=== PATIENT | female | born 1995 | race African-American/Black ===

== ENCOUNTER 2016-11-04 14:44 | Outpatient (CLI) | payer OTHER | END 2016-11-04 14:45 | disposition home or self-care (01) | LOC: MADLABBHPM 14:44 | PROVIDERS: ATTEND Family Medicine | DX: Z34.83 Encounter for supervision of other normal pregnancy, third trimester (principal) | CPT/HCPCS: 36415; 87086 ==

== ENCOUNTER 2016-11-15 | Emergency (ER) | payer OTHER | END 2016-11-15 00:23 | disposition home or self-care (01) | LOC: MADERS | DX: O99.63 Diseases of the digestive system complicating the puerperium (principal); K59.00 Constipation, unspecified | CPT/HCPCS: 99283 ==

== ENCOUNTER 2017-12-13 14:25 | Emergency (ER) | payer OTHER, SELFPAY | END 2017-12-13 15:07 | disposition home or self-care (01) | LOC: MADERS 14:25 | DX: J06.9 Acute upper respiratory infection, unspecified (principal) | CPT/HCPCS: 99283 ==

== ENCOUNTER 2017-12-26 10:22 | Emergency (ER) | payer SELFPAY ==
[2017-12-26] MEDS ORDERED: Ketorolac Tromethamine 30 MG/ML VIAL ONE (11:35)
[2017-12-26] MEDS ORDERED: Metoclopramide HCl 10 MG/2 ML VIAL ONE (11:35)
[2017-12-26] MEDS ORDERED: Acetaminophen 500 MG TAB ONE (11:55)
[2017-12-26 11:57] LABS: #Basophils 0.1 thou/uL (0.0-0.2); #Lymphocytes 0.9 thou/uL (1.20-3.40); #Monocytes 0.8 thou/uL (0.11-0.59); #Neutrophils 9.3 thou/uL (1.40-6.50); %Basophils 1.1 % (0.0-1.0); %Eosinophils 0.1 % (0.0-10.0); %Lymphocytes 8.4 % (21.0-51.0); %Monocytes 6.7 % (0.0-10.0); %Neutrophils 83.8 % (42.0-75.0); Hemoglobin 12.2 g/dL (12.0-16.0); Mean Corpuscular HGB CONC 34.5 g/dL (32.0-36.0); Mean Corpuscular Hemoglobin 31.6 pg (27.0-31.0); Mean Corpuscular Volume 91.5 fL (78.0-98.0); Mean Platelet Volume 5.4 fL (7.4-10.4); Platelet Count 330 thou/uL (130-400); RBC Distribution Width 11.4 % (11.5-14.5); Red Blood Cell (RBC) Count 3.86 mill/uL (4.20-5.40); White Blood Cell (WBC) Count 11.1 thou/uL (4.8-10.8)
[2017-12-26 12:02] LABS: Bilirubin Negative (Negative); Blood, Urine Negative (Negative); Clarity Clear (Clear); Glucose, Urine (Dipstick) Negative (Negative); Leukocyte Moderate (Negative); Nitrite Negative (Negative); Protein, Urine (Dipstick) Negative (Neg-Trace); pH, Urine 7.5 (5.0-9.0)
[2017-12-26 12:03] LABS: Pregnancy Test - Urine (BHCG) Negative (Negative); Pregu Control Bar Appear? YES (CONTROL BAR)
[2017-12-26 12:04] LABS: Pregu Control Background? CLEAR/WHITE (CLR/WHITE)
[2017-12-26 12:07] LABS: RBC/HPF 0-3 HPF (0-3)
[2017-12-26 12:08] LABS: ALT (SGPT) 17 U/L (8-55); AST (SGOT) 16 U/L (5-34); Albumin 4.4 g/dL (3.5-5.0); Alkaline Phosphatase 71 U/L (40-150); Anion Gap 13 mmol/L (10-20); BUN (Urea Nitrogen) 8 mg/dL (7.0-18.7); Bilirubin, Total 0.9 mg/dL (0.2-1.2); Calc. Creatinine Clearance 0 mL/min (70-130); Calcium 9.7 mg/dL (7.8-10.44); Carbon Dioxide 25 mmol/L (22-29); Chloride 102 mmol/L (98-107); Estimated GFR-MDRD Greater than 90; Globulin 3.3 g/dL (2.4-3.5); Glucose 101 mg/dL (70-105); Lipase 8 U/L (8-78); Potassium 3.6 mmol/L (3.5-5.1); Protein, Total 7.7 g/dL (6.0-8.3); Sodium 136 mmol/L (136-145)
[2017-12-26 12:08] LABS: Bacteria/HPF Rare-Few HPF (None Seen)
--- NOTE | 2017-12-26 12:29 | RAD ---
PORTABLE CHEST: Date: 12/26/17 HISTORY: Cough. FINDINGS: Heart size and mediastinum are within normal limits. The lungs are clear of any focal infiltrates. No significant bony findings. IMPRESSION: No active intrathoracic disease. POS: [facility]
[2017-12-26] MEDS ORDERED: Cephalexin 500 MG CAP ONE (12:40)
[2017-12-26] MEDS ORDERED: Sodium Chloride 0.9% 1,000 ML BAG ONE (14:14)
== END 2017-12-26 12:50 | disposition home or self-care (01) ==
LOC: MADERS 10:22
DX: B34.9 Viral infection, unspecified (principal); N39.0 Urinary tract infection, site not specified; R07.89 Other chest pain; F17.210 Nicotine dependence, cigarettes, uncomplicated
CPT/HCPCS: 71045; 80053; 81003; 81015; 81025; 83690; 85025; 87804; 93005; 96361; 96374; 96375; J1885; J2765; J7050

== ENCOUNTER 2018-06-24 01:17 | Emergency (ER) | payer SELFPAY ==
[2018-06-24] MEDS ORDERED: Ibuprofen 800 MG TAB ONE (02:02)
--- NOTE | 2018-06-24 09:11 | RAD ---
RIGHT FOREARM 2 VIEWS: Date: 06/24/18 HISTORY: Injury. FINDINS/IMPRESSION: No fracture, dislocation, or other significant acute osseous abnormality. POS: [facility]
--- NOTE | 2018-06-24 09:12 | RAD ---
RIGHT HAND 3 VIEWS: Date: 06/24/18 HISTORY: Injury. FINDINS/IMPRESSION: No fracture, dislocation, or other significant acute osseous abnormality. POS: [facility]
== END 2018-06-24 02:07 | disposition home or self-care (01) ==
LOC: MADERS 01:17
DX: S50.11XA Contusion of right forearm, initial encounter (principal); S60.222A Contusion of left hand, initial encounter; F17.210 Nicotine dependence, cigarettes, uncomplicated; W22.8XXA Striking against or struck by other objects, initial encounter

== ENCOUNTER 2019-01-24 19:17 | Emergency (ER) | payer OTHER ==
[2019-01-24 21:37] LABS: Pregnancy Test - Urine (BHCG) Negative (Negative)
[2019-01-24 21:38] LABS: Pregu Control Background? CLEAR/WHITE (CLR/WHITE); Pregu Control Bar Appear? YES (CONTROL BAR); Specific Gravity 1.022 (1.002-1.036)
[2019-01-24] MEDS ORDERED: Dexamethasone 4 MG TAB ONE (21:42)
[2019-01-24] MEDS ORDERED: Benzonatate 100 MG CAP ONE (21:42)
[2019-01-24] MEDS ORDERED: Azithromycin 250 MG TAB ONE (21:42)
== END 2019-01-24 21:50 | disposition home or self-care (01) ==
LOC: MADERS 19:17
DX: J18.9 Pneumonia, unspecified organism (principal); F17.210 Nicotine dependence, cigarettes, uncomplicated
CPT/HCPCS: 81025; 87804; J7620; J8540

== ENCOUNTER 2019-02-26 21:19 | Emergency (ER) | payer OTHER ==
[2019-02-26 22:24] LABS: Bilirubin Negative (Negative); Blood, Urine Negative (Negative); Clarity Slightly Cloudy (Clear); Glucose, Urine (Dipstick) Negative (Negative); Leukocyte Trace (Negative); Nitrite Negative (Negative); Pregnancy Test - Urine (BHCG) Negative (Negative); Pregu Control Background? CLEAR/WHITE (CLR/WHITE); Pregu Control Bar Appear? YES (CONTROL BAR); Protein, Urine (Dipstick) Negative (Neg-Trace)
[2019-02-26 22:32] LABS: Bacteria/HPF 1+ HPF (None Seen); RBC/HPF None Seen HPF (0-3); Squamous Epithelial 21-50 HPF (0-3)
== END 2019-02-26 23:20 | disposition home or self-care (01) ==
LOC: MADERS 21:19 → EEVIPCON 21:19 → MADERS 23:20
DX: M54.5 Low back pain (principal); F17.210 Nicotine dependence, cigarettes, uncomplicated
CPT/HCPCS: 81003; 81015; 81025; 87077; 87086; 87186

== ENCOUNTER 2019-07-04 21:03 | Emergency (ER) | payer OTHER ==
[2019-07-04] MEDS ORDERED: Sodium Chloride 0.9% 1,000 ML ONE (21:56)
[2019-07-04 22:27] LABS: #Basophils 0.1 thou/uL (0.0-0.2); #Eosinphils 0.1 thou/uL (0.0-0.7); #Lymphocytes 2.4 thou/uL (1.20-3.40); #Monocytes 0.6 thou/uL (0.11-0.59); #Neutrophils 2.3 thou/uL (1.40-6.50); %Basophils 1.1 % (0.0-1.0); %Eosinophils 1.2 % (0.0-10.0); %Lymphocytes 44.3 % (21.0-51.0); %Monocytes 10.7 % (0.0-10.0); %Neutrophils 42.7 % (42.0-75.0); Hemoglobin 11.8 g/dL (12.0-16.0); Mean Corpuscular HGB CONC 31.6 g/dL (32.0-36.0); Mean Corpuscular Hemoglobin 29.3 pg (27.0-31.0); Mean Corpuscular Volume 92.8 fL (78.0-98.0); Platelet Count 309 thou/uL (130-400); RBC Distribution Width 11.5 % (11.5-14.5); Red Blood Cell (RBC) Count 4.03 mill/uL (4.20-5.40); White Blood Cell (WBC) Count 5.4 thou/uL (4.8-10.8)
[2019-07-04 22:33] LABS: BHCG - Serum Negative (NEGATIVE); Pregs Control Background? CLEAR/WHITE (CLR/WHITE); Pregs Control Bar Appear? YES (CONTROL BAR)
[2019-07-04 23:07] LABS: ALT (SGPT) 17 U/L (8-55); AST (SGOT) 17 U/L (5-34); Albumin 4.2 g/dL (3.5-5.0); Alkaline Phosphatase 63 U/L (40-110); Anion Gap 16 mmol/L (10-20); BUN (Urea Nitrogen) 11 mg/dL (7.0-18.7); Bilirubin, Total 0.4 mg/dL (0.2-1.2); CK (CPK) 195 U/L (29-168); Calc. Creatinine Clearance 0 mL/min (70-130); Calcium 9.1 mg/dL (7.8-10.44); Carbon Dioxide 23 mmol/L (22-29); Chloride 103 mmol/L (98-107); Estimated GFR-MDRD Greater than 90; Globulin 3.1 g/dL (2.4-3.5); Glucose 89 mg/dL (70-105); Potassium 3.7 mmol/L (3.5-5.1); Protein, Total 7.3 g/dL (6.0-8.3); Sodium 138 mmol/L (136-145)
[2019-07-04] MEDS ORDERED: Ondansetron ODT 4 MG TAB ONE ×2 (23:32→23:34)
== END 2019-07-04 23:41 | disposition home or self-care (01) ==
LOC: MADERS 21:03
DX: E86.0 Dehydration (principal); R25.2 Cramp and spasm
CPT/HCPCS: 36415; 80053; 82550; 83605; 84703; 85025; 96360; J7050; Q0162

== ENCOUNTER 2019-07-25 15:43 | Emergency (ER) | payer OTHER ==
[2019-07-25] MEDS ORDERED: Loperamide HCl 2 MG CAP ONE (16:16)
== END 2019-07-25 16:25 | disposition home or self-care (01) ==
LOC: MADERS 15:43
DX: A08.4 Viral intestinal infection, unspecified (principal)
CPT/HCPCS: 99283

== ENCOUNTER 2019-12-10 15:27 | Emergency (ER) | payer OTHER ==
[2019-12-10] MEDS ORDERED: Acetaminophen 500 MG TAB ONE (16:04)
[2019-12-10] MEDS ORDERED: Ibuprofen 800 MG TAB ONE (16:04)
== END 2019-12-10 16:12 | disposition home or self-care (01) ==
LOC: MADERS 15:27
DX: G44.209 Tension-type headache, unspecified, not intractable (principal)
CPT/HCPCS: 99283

== ENCOUNTER 2020-01-06 19:01 | Emergency (ER) | payer OTHER ==
[2020-01-06] MEDS ORDERED: Lidocaine 1% w/Epinephrine 1:100K 20 ML VIAL ONE (19:16)
== END 2020-01-06 19:46 | disposition home or self-care (01) ==
LOC: MADERS 19:01
DX: S01.01XA Laceration without foreign body of scalp, initial encounter (principal); W03.XXXA Other fall on same level due to collision with another person, initial encounter
CPT/HCPCS: 12002

== ENCOUNTER 2020-10-26 06:35 | Emergency (ER) | payer OTHER ==
[2020-10-26 07:18] LABS: #Eosinphils 0.1 thou/uL (0.0-0.7); #Lymphocytes 1.3 thou/uL (1.20-3.40); #Monocytes 0.5 thou/uL (0.11-0.59); #Neutrophils 2.5 thou/uL (1.40-6.50); %Eosinophils 2.8 % (0.0-10.0); %Lymphocytes 29.5 % (21.0-51.0); %Monocytes 11.2 % (0.0-10.0); %Neutrophils 55.5 % (42.0-75.0); Hemoglobin 12.7 g/dL (12.0-16.0); Mean Corpuscular HGB CONC 32.3 g/dL (32.0-36.0); Mean Corpuscular Hemoglobin 29.7 pg (27.0-31.0); Mean Corpuscular Volume 91.9 fL (78.0-98.0); Mean Platelet Volume 6.1 fL (7.4-10.4); Platelet Count 374 thou/uL (130-400); RBC Distribution Width 11.8 % (11.5-14.5); Red Blood Cell (RBC) Count 4.27 mill/uL (4.20-5.40); White Blood Cell (WBC) Count 4.4 thou/uL (4.8-10.8)
[2020-10-26] MEDS ORDERED: Fentanyl 100 MCG/2 ML VIAL ONE (07:18)
[2020-10-26] MEDS ORDERED: Sodium Chloride 0.9% 1,000 ML ONE (07:18)
[2020-10-26 07:21] LABS: Bilirubin Negative (Negative); Blood, Urine Negative (Negative); Clarity Clear (Clear); Glucose, Urine (Dipstick) Negative (Negative); Ketone, Urine Negative (Negative); Leukocyte Negative (Negative); Nitrite Negative (Negative); Protein, Urine (Dipstick) Negative (Neg-Trace)
[2020-10-26 07:23] LABS: Specific Gravity, Urine 1.028 (1.002-1.036)
[2020-10-26 07:25] LABS: Pregnancy Test - Urine (BHCG) Negative (Negative); Pregu Control Background? CLEAR/WHITE (CLR/WHITE); Pregu Control Bar Appear? YES (CONTROL BAR); Specific Gravity 1.028 (1.002-1.036)
[2020-10-26 07:34] LABS: ALT (SGPT) 28 U/L (8-55); AST (SGOT) 21 U/L (5-34); Albumin 4.3 g/dL (3.5-5.0); Alkaline Phosphatase 77 U/L (40-110); Anion Gap 13 mmol/L (10-20); BUN (Urea Nitrogen) 11 mg/dL (7.0-18.7); Bilirubin, Total 0.4 mg/dL (0.2-1.2); Calc. Creatinine Clearance 0 mL/min (70-130); Calcium 9.5 mg/dL (7.8-10.44); Carbon Dioxide 26 mmol/L (22-29); Chloride 103 mmol/L (98-107); Globulin 3.5 g/dL (2.4-3.5); Glucose 112 mg/dL (70-105); Lipase 35 U/L (8-78); Potassium 3.7 mmol/L (3.5-5.1); Protein, Total 7.8 g/dL (6.0-8.3); Sodium 138 mmol/L (136-145)
== END 2020-10-26 08:23 | disposition home or self-care (01) ==
LOC: MADERS 06:35
DX: K80.20 Calculus of gallbladder without cholecystitis without obstruction (principal)
CPT/HCPCS: 36415; 80053; 81003; 81025; 83690; 85025; 96374; J3010; J7050

== ENCOUNTER 2021-02-03 18:44 | Emergency (ER) | payer OTHER ==
[2021-02-03] MEDS ORDERED: Ibuprofen 800 MG TAB ONE (19:10)
== END 2021-02-03 19:53 | disposition home or self-care (01) ==
LOC: MADERS 18:44
DX: M79.642 Pain in left hand (principal)

== ENCOUNTER 2021-10-05 05:36 | Emergency (ER) | payer OTHER ==
[2021-10-05] MEDS ORDERED: Ondansetron PF 4 MG/2 ML Vial ONE (06:06)
[2021-10-05] MEDS ORDERED: Ketorolac Tromethamine 30 MG/ML VIAL ONE (06:06)
[2021-10-05 06:26] LABS: Bilirubin Negative (Negative); Blood, Urine Negative (Negative); Clarity Clear (Clear); Glucose, Urine (Dipstick) Negative (Negative); Ketone, Urine Negative (Negative); Leukocyte Trace (Negative); Nitrite Negative (Negative); Protein, Urine (Dipstick) Negative (Neg-Trace); Specific Gravity, Urine 1.025 (1.005-1.030); pH, Urine 6.5 (5.0-9.0)
[2021-10-05 06:27] LABS: #Basophils 0.1 thou/uL (0.0-0.2); #Eosinphils 0.1 thou/uL (0.0-0.7); #Lymphocytes 2.7 thou/uL (1.20-3.40); #Monocytes 0.6 thou/uL (0.11-0.59); #Neutrophils 2.6 thou/uL (1.40-6.50); %Basophils 1.5 % (0.0-1.0); %Eosinophils 1.5 % (0.0-10.0); %Lymphocytes 44.4 % (21.0-51.0); %Monocytes 10.2 % (0.0-10.0); %Neutrophils 42.5 % (42.0-75.0); Hemoglobin 12.3 g/dL (12.0-16.0); Mean Corpuscular HGB CONC 32.9 g/dL (32.0-36.0); Mean Corpuscular Hemoglobin 29.2 pg (27.0-31.0); Mean Corpuscular Volume 88.6 fL (78.0-98.0); Mean Platelet Volume 6.6 fL (7.4-10.4); Platelet Count 379 thou/uL (130-400); RBC Distribution Width 12.1 % (11.5-14.5); Red Blood Cell (RBC) Count 4.21 mill/uL (4.20-5.40); White Blood Cell (WBC) Count 6.1 thou/uL (4.8-10.8)
[2021-10-05 06:28] LABS: Pregnancy Test - Urine (BHCG) Negative (Negative); Pregu Control Background? CLEAR/WHITE (CLR/WHITE); Pregu Control Bar Appear? YES (CONTROL BAR); Specific Gravity 1.025 (1.002-1.036)
[2021-10-05 06:32] LABS: Bacteria/HPF 1+ HPF (None Seen); RBC/HPF 0-3 HPF (0-3); WBC/HPF 0-3 HPF (0-3)
[2021-10-05 06:41] LABS: ALT (SGPT) 21 U/L (8-55); AST (SGOT) 14 U/L (5-34); Albumin 4.2 g/dL (3.5-5.0); Alkaline Phosphatase 80 U/L (40-110); Anion Gap 16 mmol/L (10-20); BUN (Urea Nitrogen) 10 mg/dL (7.0-18.7); Bilirubin, Total 0.3 mg/dL (0.2-1.2); Calc. Creatinine Clearance 0 mL/min (70-130); Calcium 9.5 mg/dL (7.8-10.44); Carbon Dioxide 27 mmol/L (22-29); Chloride 101 mmol/L (98-107); Globulin 3.3 g/dL (2.4-3.5); Glucose 114 mg/dL (70-105); Lipase 55 U/L (8-78); Potassium 3.5 mmol/L (3.5-5.1); Protein, Total 7.5 g/dL (6.0-8.3); Sodium 140 mmol/L (136-145)
[2021-10-05] MEDS ORDERED: Pantoprazole 40 MG VIAL ONE (07:00)
== END 2021-10-05 07:45 | disposition home or self-care (01) ==
LOC: MADERS 05:36
DX: K80.20 Calculus of gallbladder without cholecystitis without obstruction (principal)
CPT/HCPCS: 76705; 80053; 81003; 81015; 81025; 83690; 85025; 96374; 96375; C9113; J1885; J2405

== ENCOUNTER 2021-11-25 12:53 | Emergency (ER) | payer OTHER ==
[2021-11-25] MEDS ORDERED: Bicillin LA 1.2 MILLION UNITS/2 ML SYRINGE ONE (13:43)
== END 2021-11-25 14:05 | disposition home or self-care (01) ==
LOC: MADERS 12:53
DX: J02.9 Acute pharyngitis, unspecified (principal)
CPT/HCPCS: 96372; 99282; J0561

== ENCOUNTER 2022-01-21 22:56 | Emergency (ER) | payer OTHER ==
[~2022-01-21 22:56] MED LIST: Iopamidol 370 76% 100 ML VIAL ONE
[2022-01-21 23:14] LABS: Bilirubin Negative (Negative); Blood, Urine Negative (Negative); Clarity Clear (Clear); Glucose, Urine (Dipstick) Negative (Negative); Ketone, Urine Negative (Negative); Leukocyte Negative (Negative); Nitrite Negative (Negative); Protein, Urine (Dipstick) Negative (Neg-Trace); Specific Gravity, Urine 1.025 (1.005-1.030); pH, Urine 6.5 (5.0-9.0)
[2022-01-21 23:15] LABS: Pregnancy Test - Urine (BHCG) Negative (Negative); Pregu Control Background? CLEAR/WHITE (CLR/WHITE); Pregu Control Bar Appear? YES (CONTROL BAR); Specific Gravity 1.021 (1.002-1.036)
[2022-01-21 23:49] LABS: ALT (SGPT) 24 U/L (8-55); AST (SGOT) 20 U/L (5-34); Albumin 4.1 g/dL (3.5-5.0); Alkaline Phosphatase 68 U/L (40-110); Anion Gap 13 mmol/L (10-20); BUN (Urea Nitrogen) 9 mg/dL (7.0-18.7); Bilirubin, Total 0.2 mg/dL (0.2-1.2); Calc. Creatinine Clearance 0 mL/min (70-130); Calcium 9.4 mg/dL (7.8-10.44); Carbon Dioxide 26 mmol/L (22-29); Chloride 102 mmol/L (98-107); Estimated GFR 100; Globulin 3.1 g/dL (2.4-3.5); Glucose 100 mg/dL (70-105); Lipase 40 U/L (8-78); Potassium 3.7 mmol/L (3.5-5.1); Protein, Total 7.2 g/dL (6.0-8.3); Sodium 137 mmol/L (136-145)
[2022-01-21] MEDS ORDERED: Ketorolac Tromethamine 30 MG/ML VIAL ONE (23:52)
[2022-01-21 23:55] LABS: Hemoglobin 11.6 g/dL (12.0-16.0); MDiff Complete? YES; Mean Corpuscular HGB CONC 34.7 g/dL (32.0-36.0); Mean Corpuscular Hemoglobin 31.8 pg (27.0-31.0); Mean Corpuscular Volume 91.6 fL (78.0-98.0); Mean Platelet Volume 6.1 fL (7.4-10.4); Platelet Count 335 thou/uL (130-400); RBC Distribution Width 11.1 % (11.5-14.5); Red Blood Cell (RBC) Count 3.64 mill/uL (4.20-5.40); White Blood Cell (WBC) Count 5.3 thou/uL (4.8-10.8)
[2022-01-21 23:56] LABS: Eosinophils 3 % (0-10); Lymphocytes 56 % (21-51); Monocytes 4 % (0-10); Neutrophil 36 % (42-75); RBC Morphology Normal; Reactive Lymphocytes 1 % (0-10)
== END 2022-01-22 00:47 | disposition home or self-care (01) ==
LOC: MADERS 22:56
DX: N83.209 Unspecified ovarian cyst, unspecified side (principal); N20.0 Calculus of kidney; K80.20 Calculus of gallbladder without cholecystitis without obstruction
CPT/HCPCS: 74177; 80053; 81003; 81025; 83690; 85025; 96374; J1885; Q9967

== ENCOUNTER 2022-01-31 17:54 | Emergency (ER) | payer OTHER ==
[2022-01-31] MEDS ORDERED: Ondansetron ODT 4 MG TAB ONE (18:30)
[2022-01-31] MEDS ORDERED: Ketorolac Tromethamine 30 MG/ML VIAL ONE (18:30)
[2022-01-31 18:44] LABS: Pregnancy Test - Urine (BHCG) Negative (Negative); Pregu Control Background? CLEAR/WHITE (CLR/WHITE); Pregu Control Bar Appear? YES (CONTROL BAR)
[2022-01-31 18:44] LABS: #Basophils 0.1 thou/uL (0.0-0.2); #Eosinphils 0.1 thou/uL (0.0-0.7); #Monocytes 0.5 thou/uL (0.11-0.59); #Neutrophils 2.7 thou/uL (1.40-6.50); %Basophils 2.4 % (0.0-1.0); %Eosinophils 1.9 % (0.0-10.0); %Lymphocytes 37.1 % (21.0-51.0); %Neutrophils 49.6 % (42.0-75.0); Mean Corpuscular HGB CONC 33.4 g/dL (32.0-36.0); Mean Corpuscular Hemoglobin 30.7 pg (27.0-31.0); Mean Platelet Volume 6.1 fL (7.4-10.4); Platelet Count 389 thou/uL (130-400); RBC Distribution Width 11.3 % (11.5-14.5); Red Blood Cell (RBC) Count 3.89 mill/uL (4.20-5.40); White Blood Cell (WBC) Count 5.4 thou/uL (4.8-10.8)
[2022-01-31 18:48] LABS: Prothrombin Time 13.7 sec (12.0-14.7)
[2022-01-31 18:49] LABS: PTT 28.7 sec (22.9-36.1)
[2022-01-31 18:55] LABS: ALT (SGPT) 19 U/L (8-55); AST (SGOT) 22 U/L (5-34); Albumin 4.4 g/dL (3.5-5.0); Alkaline Phosphatase 62 U/L (40-110); Anion Gap 15 mmol/L (10-20); BUN (Urea Nitrogen) 9 mg/dL (7.0-18.7); Bilirubin, Total 0.7 mg/dL (0.2-1.2); Calc. Creatinine Clearance 0 mL/min (70-130); Calcium 9.4 mg/dL (7.8-10.44); Carbon Dioxide 26 mmol/L (22-29); Chloride 103 mmol/L (98-107); Estimated GFR 101; Globulin 3.3 g/dL (2.4-3.5); Glucose 92 mg/dL (70-105); Lipase 18 U/L (8-78); Potassium 3.5 mmol/L (3.5-5.1); Protein, Total 7.7 g/dL (6.0-8.3); Sodium 140 mmol/L (136-145)
== END 2022-01-31 20:57 | disposition short-term general hospital (02) ==
LOC: MADERS 17:54
DX: N92.0 Excessive and frequent menstruation with regular cycle (principal); R11.2 Nausea with vomiting, unspecified; F17.210 Nicotine dependence, cigarettes, uncomplicated
CPT/HCPCS: 36415; 80053; 81025; 83690; 85025; 85610; 85730; 96372; 99284; J1885; Q0162

== ENCOUNTER 2022-12-14 12:04 | Emergency (ER) | payer OTHER | END 2022-12-14 12:51 | disposition home or self-care (01) | LOC: MADERS 12:04 | DX: B34.9 Viral infection, unspecified (principal); F17.210 Nicotine dependence, cigarettes, uncomplicated; Z20.822 Contact with and (suspected) exposure to COVID-19 | CPT/HCPCS: 87635; 87804; 99283 ==

== ENCOUNTER 2023-06-13 05:29 | Emergency (ER) | payer OTHER ==
[2023-06-13] MEDS ORDERED: Ibuprofen 800 MG TAB ONE (05:36)
[2023-06-13 07:06] LABS: SARS-CoV-2 E Target Negative; SARS-CoV-2 N2 Target Negative; SARS-CoV-2 NAA Rapid Test Not Detected (NotDetected); SARS-CoV-2 RdRP gene Negative
== END 2023-06-13 06:40 | disposition home or self-care (01) ==
LOC: MADERS 05:29
DX: R50.9 Fever, unspecified (principal); R51.9 Headache, unspecified; M79.10 Myalgia, unspecified site
CPT/HCPCS: 87804; 99284; U0002

== ENCOUNTER 2023-11-09 08:25 | Emergency (ER) | payer OTHER | END 2023-11-09 09:13 | disposition home or self-care (01) | LOC: MADERS 08:25 | DX: H66.91 Otitis media, unspecified, right ear (principal); H73.91 Unspecified disorder of tympanic membrane, right ear; J02.9 Acute pharyngitis, unspecified | CPT/HCPCS: 87081; 87430; 99283 ==

== ENCOUNTER 2025-03-09 08:07 | Emergency (ER) | payer OTHER, SELFPAY ==
[2025-03-09] MEDS ORDERED: Dexamethasone 4 MG TAB ONE (08:28)
== END 2025-03-09 08:57 | disposition home or self-care (01) ==
LOC: MADERS 08:07
DX: J20.9 Acute bronchitis, unspecified (principal)
CPT/HCPCS: 87081; 87428; 87430; J8540